=== PATIENT | male | born 2000 | race Caucasian/White ===

== ENCOUNTER 2021-05-03 13:02 | Emergency (ER) | payer OTHER ==
[~2021-05-03] VITALS: Ht 177.8 cm; Wt 74.0 kg
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
[2021-05-03 16:37] VITALS: BP 126/63
== END 2021-05-03 16:43 | disposition home or self-care (01) ==
LOC: M ED 13:02
DX: S62.304A Unspecified fracture of fourth metacarpal bone, right hand, initial encounter for closed fracture (principal); W22.8XXA Striking against or struck by other objects, initial encounter; Y92.410 Unspecified street and highway as the place of occurrence of the external cause; F17.210 Nicotine dependence, cigarettes, uncomplicated

== ENCOUNTER 2023-06-17 03:48 | Inpatient (IN) | payer OTHER ==
[~2023-06-17] VITALS: Ht 182.9 cm; Wt 79.5 kg
[2023-06-17 04:42] LABS: HEMATOCRIT 49.1 % (42.0-52.0); HEMOGLOBIN 16.5 g/dl (13.5-17.5); MEAN CORPUSCULAR HEMOGLOBIN 30.9 pg (27.0-33.0); MEAN CORPUSCULAR HGB CONC 33.6 g/dl (32.0-36.5); MEAN CORPUSCULAR VOLUME 91.9 fl (80.0-96.0); PLATELET COUNT, AUTOMATED 319 10^3/uL (150-450); RED BLOOD COUNT 5.34 10^6/uL (4.30-6.10); WHITE BLOOD COUNT 6.7 10^3/uL (4.0-10.0)
[2023-06-17 05:10] LABS: AMPHETAMINES LEVEL URINE NEGATIVE (NEGATIVE); BARBITURATES URINE NEGATIVE (NEGATIVE); BENZODIAZEPINES URINE NEGATIVE (NEGATIVE); CANNABINOIDS URINE NEGATIVE (NEGATIVE); COCAINE METABOLITE URINE NEGATIVE (NEGATIVE); METHADONE URINE NEGATIVE (NEGATIVE); OPIATES URINE NEGATIVE (NEGATIVE); PHENCYCLIDINE URINE NEGATIVE (NEGATIVE)
[2023-06-17 05:13] LABS: ACETAMINOPHEN LEVEL < 2.0 UG/ML (10.0-20.0)
[2023-06-17] MEDS ORDERED: CYAN100049 PO (05:13)
[2023-06-17 05:14] LABS: ALKALINE PHOSPHATASE 73 U/L (46-116); ALT/SGPT 40 U/L (7.0-40); AST/SGOT 19 U/L (<34); BILIRUBIN,DIRECT 0.1 MG/DL (<0.4); BILIRUBIN,TOTAL 0.3 MG/DL (0.3-1.2); BLOOD UREA NITROGEN 10 MG/DL (9-23); CALCIUM LEVEL 8.1 MG/DL (8.5-10.1); CARBON DIOXIDE LEVEL 27 MMOL/L (20-31); CHLORIDE LEVEL 112 MMOL/L (98-107); CREATININE FOR GFR 0.93 MG/DL (0.70-1.30); GLOMERULAR FILTRATION RATE > 60.0 (>60); GLUCOSE, FASTING 102 MG/DL (60-100); POTASSIUM SERUM 4.2 MMOL/L (3.5-5.1); SALICYLATE LEVEL < 3.0 MG/DL (<30); SODIUM LEVEL 148 MMOL/L (136-145); TOTAL PROTEIN 7.5 G/DL (5.7-8.2)
[2023-06-17] MEDS ORDERED: HOME MED LIST COMPLETE! XX SCH (05:15)
[2023-06-17 05:16] LABS: THYROID STIMULATING HORMONE 1.932 uIU/ML (0.55-4.78)
[2023-06-17 06:16] LABS: ETHYL ALCOHOL (ETHANOL) 0.348 % (0.000-0.010)
[2023-06-17] MEDS ORDERED: LORazepam 2 MG TAB PO PRN ×2 (06:55→14:35)
[2023-06-17] MEDS ORDERED: MULTIVITAMINS/MINERALS THERAP 1 TAB PO SCH (09:00)
[2023-06-17] MEDS ORDERED: FOLIC ACID 1MG TAB PO SCH (09:00)
[2023-06-17] MEDS: THIAMINE 100 MG TAB PO SCH ×3 (09:45→22:15)
[2023-06-17] MEDS ORDERED: CALCIUM CARBONATE 500 MG CHEW U/D PO ONE (12:00)
[2023-06-17] MEDS ORDERED: NICOTINE 21MG/24HR 1 EA TRANSDERMAL TD ONE (13:25)
[2023-06-17] MEDS ORDERED: MAALOX 30 ML SUSP *UDC PO PRN (14:35)
[2023-06-17] MEDS ORDERED: IBUPROFEN 400MG TAB PO PRN (14:35)
[2023-06-17] MEDS ORDERED: MOM 30ML SUSPENSION UDC PO PRN (14:35)
[2023-06-17] MEDS ORDERED: ACETAMINOPHEN TAB 650MG DOSE (2X325MG) PO PRN (14:35)
[2023-06-17] MEDS: diphenhydrAMINE 25MG CAP PO PRN (22:15)
[2023-06-17] MEDS: traZODone 50 MG TAB PO PRN (22:15)
[2023-06-17 22:41] VITALS: BP 136/82; TEMP 98.4; O2SAT 97
[2023-06-18 06:00] VITALS: BP 120/80
[2023-06-18 06:10] VITALS: BP 120/80; TEMP 97.5; O2SAT 97
[2023-06-18] MEDS: MULTIVITAMINS/MINERALS THERAP 1 TAB PO SCH (08:38)
[2023-06-18] MEDS: FOLIC ACID 1MG TAB PO SCH (08:38)
[2023-06-18] MEDS: THIAMINE 100 MG TAB PO SCH ×2 (08:38→21:17)
[2023-06-18 14:00] VITALS: BP 149/78
[2023-06-18] MEDS: NICOTINE 21MG/24HR 1 EA TRANSDERMAL TD PRN (14:54)
[2023-06-18 18:36] VITALS: BP 138/81; TEMP 97.1; O2SAT 100
[2023-06-18 22:00] VITALS: BP 143/97
[2023-06-18] MEDS: diphenhydrAMINE 25MG CAP PO PRN (22:20)
[2023-06-18] MEDS: traZODone 50 MG TAB PO PRN (22:50)
[2023-06-19 06:00] VITALS: BP 119/71
[2023-06-19 07:02] VITALS: BP 119/71; TEMP 97.2; O2SAT 99
[2023-06-19] MEDS: MULTIVITAMINS/MINERALS THERAP 1 TAB PO SCH (09:23)
[2023-06-19] MEDS: THIAMINE 100 MG TAB PO SCH ×2 (09:24→20:54)
[2023-06-19] MEDS: FOLIC ACID 1MG TAB PO SCH (09:24)
[2023-06-19] MEDS: NICOTINE 21MG/24HR 1 EA TRANSDERMAL TD PRN (09:27)
[2023-06-19 14:00] VITALS: BP 138/85
[2023-06-19 18:26] VITALS: BP 129/70; TEMP 98; O2SAT 99
[2023-06-19] MEDS: diphenhydrAMINE 25MG CAP PO PRN (20:54)
[2023-06-19] MEDS: traZODone 50 MG TAB PO PRN (23:02)
[2023-06-20 06:47] VITALS: BP 128/75; TEMP 96.9; O2SAT 98
[2023-06-20 06:52] VITALS: BP 127/75
[2023-06-20] MEDS: MULTIVITAMINS/MINERALS THERAP 1 TAB PO SCH (08:16)
[2023-06-20] MEDS: THIAMINE 100 MG TAB PO SCH ×2 (08:16→21:25)
[2023-06-20] MEDS: FOLIC ACID 1MG TAB PO SCH (08:16)
[2023-06-20] MEDS: NICOTINE 21MG/24HR 1 EA TRANSDERMAL TD PRN (08:17)
[2023-06-20] MEDS: diphenhydrAMINE 25MG CAP PO PRN ×2 (12:22→21:25)
[2023-06-20] MEDS ORDERED: NICO21PAT TD (13:25)
[2023-06-20] MEDS ORDERED: CELE10TA PO (13:25)
[2023-06-20] MEDS ORDERED: CitaloPRAM (CeleXA) 10 MG TABLET PO ONE (13:30)
[2023-06-20 14:00] VITALS: BP 127/75
[2023-06-20 18:15] VITALS: BP 138/68; TEMP 98.4; O2SAT 98
[2023-06-20] MEDS: traZODone 50 MG TAB PO PRN (21:25)
[2023-06-21 06:42] VITALS: BP 122/64; TEMP 97; O2SAT 100
[2023-06-21 06:43] VITALS: BP 122/64
[2023-06-21] MEDS: FOLIC ACID 1MG TAB PO SCH (08:32)
[2023-06-21] MEDS: THIAMINE 100 MG TAB PO SCH (08:32)
[2023-06-21] MEDS: MULTIVITAMINS/MINERALS THERAP 1 TAB PO SCH (08:32)
[2023-06-21] MEDS ORDERED: CITA10TA7 PO (08:43)
[2023-06-21] MEDS: diphenhydrAMINE 25MG CAP PO PRN (09:46)
== END 2023-06-21 11:31 | disposition home or self-care (01) | DRG 885 ==
LOC: M ED 03:48 → EDBD 03:48 → M ED INP 14:34 → M PSY 21:37
PROVIDERS: ADMIT Student in an Organized Health Care Education/Training Program; ATTEND Student in an Organized Health Care Education/Training Program
DX: F33.2 Major depressive disorder, recurrent severe without psychotic features (principal); F10.14 Alcohol abuse with alcohol-induced mood disorder; R45.851 Suicidal ideations; E87.0 Hyperosmolality and hypernatremia; F10.129 Alcohol abuse with intoxication, unspecified; F41.8 Other specified anxiety disorders; F17.200 Nicotine dependence, unspecified, uncomplicated; Z79.899 Other long term (current) drug therapy; Z88.1 Allergy status to other antibiotic agents; Z20.822 Contact with and (suspected) exposure to COVID-19; Z56.0 Unemployment, unspecified; Z59.00 Homelessness unspecified; Z91.82 Personal history of military deployment; Z91.52 Personal history of nonsuicidal self-harm

== ENCOUNTER → 2024-01-18 | Outpatient (CLI) | payer OTHER ==
[~2024-01-18] MED LIST: CELE10TA PO; CITA10TA7 PO; CYAN100049 PO; NICO21PAT TD
== END ==
LOC: M PLAIMG 14:46
PROVIDERS: ATTEND Nurse Practitioner Family
DX: M54.6 Pain in thoracic spine (principal); M54.50 Low back pain, unspecified